=== PATIENT | female | born 1950 | race Caucasian/White ===

== ENCOUNTER 2017-02-27 17:20 | Emergency (ER) | payer OTHER ==
[~2017-02-27] VITALS: Ht 172.7 cm; Wt 96.7 kg
[2017-02-27 18:51] LABS: BASOPHIL COUNT 0.1 K/uL (0-0.1); EOSINOPHIL (%) 2.7 % (0-5); EOSINOPHIL COUNT 0.3 K/uL (0-0.3); HEMATOCRIT 37.4 % (36.0-46.0); IMMATURE GRANULOCYTE (%) 0.4 % (0.0-0.7); INSTRUMENT ABS NEUTROPHIL CT 6.9 K/uL; LYMPHOCYTE COUNT 2.2 K/uL (1.0-2.8); MCHC 31.6 G/DL (30.0-36.0); MCV 85.6 FL (83-99); MONOCYTE (%) 6.5 % (3-12); MONOCYTE COUNT 0.7 K/uL (0-0.8); NEUTROPHIL (%) 67.9 % (45-76); NEUTROPHIL COUNT 6.9 K/uL (1.8-6.4); PLATELET COUNT 289 K/uL (156-360); RBC DIS.WIDTH-CV 15.1 % (11.8-14.6); RBC DIS.WIDTH-SD 47.6 % (39-53); RED BLOOD COUNT 4.37 M/uL (3.80-5.20); WHITE BLOOD COUNT 10.1 K/uL (4.1-10.2)
[2017-02-27 19:03] LABS: CHLORIDE 106 mEq/L (99-109); SODIUM 139 mEq/L (136-147)
[2017-02-27 19:05] LABS: GLUCOSE 214 mg/dL (70-99)
[2017-02-27 19:07] LABS: ANION GAP 9 MEQ/L (2-14); TOTAL BILIRUBIN 0.2 mg/dL (0.0-1.0)
[2017-02-27 19:09] LABS: ALKALINE PHOSPHATASE 65 IU/L (3-129); GFR ESTIMATE (CALCULATED) 59 mL/min/
[2017-02-27 19:10] LABS: UREA NITROGEN (BUN) 17 mg/dL (9-23)
[2017-02-27 19:12] LABS: LIPASE 26 U/L (1.0-51.0)
[2017-02-27 19:42] LABS: ADD MIUA? YES; BILIRUBIN NEGATIVE; BLOOD SMALL; COLOR YELLOW ((YELLOW)); GLUCOSE (STRIP) NEGATIVE; KETONES NEGATIVE; LEUKOCYTES LARGE; NITRITE NEGATIVE; PROTEIN (STRIP) NEGATIVE; SPECIFIC GRAVITY 1.016 (1.000-1.030); UROBILINOGEN 0.2 MG/DL (0.2-1.0)
[2017-02-27 19:49] LABS: BACTERIA 3+ /HPF; EPITHELIAL CELLS 1+ /HPF; MUCUS TRACE /LPF; RED BLOOD CELLS 0-5 /HPF (0-5); UCUL ADDED? YES; UNCLASSIFIED CASTS 0-5 /LPF; UNCLASSIFIED CRYSTALS 1+ /HPF; WHITE BLOOD CELLS TNTC /HPF (0-5)
[2017-02-27] MEDS ORDERED: ZOFRAN ODT4 MG PO (21:04)
[2017-02-27] MEDS ORDERED: BACTRIM,SEPT1 TABLET PO (21:04)
[2017-02-27 23:06] VITALS: BP 120/58
== END 2017-02-27 23:10 | disposition home or self-care (01) ==
LOC: EME 17:20
PROVIDERS: Emergency Medicine
DX: N39.0 Urinary tract infection, site not specified (principal); R10.84 Generalized abdominal pain; R19.7 Diarrhea, unspecified; N28.1 Cyst of kidney, acquired; Z90.710 Acquired absence of both cervix and uterus
CPT/HCPCS: 74177; 80053; 81003; 83690; 85025; 87086 GA; 99281; 99285; J0692; J2405; J7030

== ENCOUNTER 2017-05-26 19:48 | Observation (INO) | payer OTHER ==
[~2017-05-26] VITALS: Ht 172.7 cm; Wt 94.7 kg
[~2017-05-26 19:48] MED LIST: BACTRIM,SEPT1 TABLET PO; ZOFRAN ODT4 MG PO
[2017-05-26 20:31] LABS: HEMATOCRIT 34.9 % (36.0-46.0); HEMOGLOBIN 11.4 G/DL (11.9-15.5); MCH 28.6 PG (29.0-34.0); MCHC 32.7 G/DL (30.0-36.0); MCV 87.7 FL (83-99); PLATELET COUNT 259 K/uL (156-360); RBC DIS.WIDTH-CV 12.6 % (11.8-14.6); RBC DIS.WIDTH-SD 40.2 % (39-53); RED BLOOD COUNT 3.98 M/uL (3.80-5.20)
[2017-05-26 20:40] LABS: CHLORIDE 105 mEq/L (99-109); POTASSIUM 3.5 mEq/L (3.7-5.4); SODIUM 141 mEq/L (136-147)
[2017-05-26 20:42] LABS: GLUCOSE 219 mg/dL (70-99)
[2017-05-26 20:45] LABS: CREATININE 1.2 mg/dL (0.6-1.3); GFR ESTIMATE (CALCULATED) 47 mL/min/
[2017-05-26 20:46] LABS: UREA NITROGEN (BUN) 20 mg/dL (9-23)
[2017-05-26 20:52] LABS: TROP-I INTERPRETATION NEGATIVE; TROPONIN-I < 0.01 ng/mL (0.0-0.30)
[2017-05-26] MEDS ORDERED: LYRICA75 MG PO (22:20)
[2017-05-26] MEDS ORDERED: FENOFIBRATE145 M1 PO (22:21)
[2017-05-26] MEDS ORDERED: ESCITALOPRAM OX20 MG PO (22:22)
[2017-05-26] MEDS ORDERED: PRAVASTATIN SOD80 MG PO (22:23)
[2017-05-26] MEDS ORDERED: METFORMIN HCL500 MG PO (22:23)
[2017-05-26] MEDS ORDERED: ZOFRAN ODT4 MG PO (22:24)
[2017-05-26 23:55] LABS: D-DIMER ELISA < 150.00 ng/mLDDU (<230)
[2017-05-27 00:01] LABS: ALBUMIN 3.9 g/dL (3.2-4.8)
[2017-05-27 00:04] LABS: TOTAL PROTEIN 6.3 g/dL (6.4-8.3)
[2017-05-27 00:06] LABS: TOTAL BILIRUBIN 0.2 mg/dL (0.0-1.0)
[2017-05-27 00:07] LABS: ALKALINE PHOSPHATASE 65 IU/L (3-129)
[2017-05-27 00:09] LABS: AST (GOT) 13 IU/L (2-34)
[2017-05-27 00:10] LABS: ALT (GPT) 13 IU/L (3-49); DIRECT BILIRUBIN 0.1 mg/dL (0.0-0.3)
[2017-05-27 00:11] LABS: LIPASE 28 U/L (1.0-51.0)
[2017-05-27 00:20] VITALS: BP 133/71
[2017-05-27 03:17] LABS: TROP-I INTERPRETATION NEGATIVE; TROPONIN-I < 0.01 ng/mL (0.0-0.30)
[2017-05-27 04:10] VITALS: BP 137/69
[2017-05-27 07:53] VITALS: BP 125/64
[2017-05-27 07:53] LABS: HEMATOCRIT 38.5 % (36.0-46.0); HEMOGLOBIN 12.3 G/DL (11.9-15.5); MCH 27.8 PG (29.0-34.0); MCHC 31.9 G/DL (30.0-36.0); MCV 87.1 FL (83-99); PLATELET COUNT 268 K/uL (156-360); RBC DIS.WIDTH-CV 12.2 % (11.8-14.6); RBC DIS.WIDTH-SD 39.3 % (39-53); RED BLOOD COUNT 4.42 M/uL (3.80-5.20)
[2017-05-27 08:14] LABS: TROP-I INTERPRETATION NEGATIVE; TROPONIN-I < 0.01 ng/mL (0.0-0.30)
[2017-05-27 08:31] LABS: CHLORIDE 105 MEQ/L (99-109); GFR ESTIMATE (CALCULATED) 59 mL/min/; GLUCOSE 198 mg/dL (70-99); POTASSIUM 4.2 MEQ/L (3.7-5.4); SODIUM 143 MEQ/L (136-147); UREA NITROGEN (BUN) 15 mg/dL (9-23)
[2017-05-27 11:23] VITALS: BP 115/58
[2017-05-27] MEDS ORDERED: ASPIR-LOW81 MG PO (13:51)
== END 2017-05-27 15:00 | disposition home or self-care (01) ==
LOC: EME 19:48 → EDOF 23:22 → 5WEST 23:22 → ENRESERV 23:29 → 5WEST 05-27 00:19
PROVIDERS: Emergency Medicine; Hospitalist
DX: R07.89 Other chest pain (principal); I10 Essential (primary) hypertension; E11.9 Type 2 diabetes mellitus without complications; E78.5 Hyperlipidemia, unspecified; R94.31 Abnormal electrocardiogram [ECG] [EKG]; I69.354 Hemiplegia and hemiparesis following cerebral infarction affecting left non-dominant side; F31.9 Bipolar disorder, unspecified; R06.02 Shortness of breath; Z82.3 Family history of stroke; E66.9 Obesity, unspecified; Z68.31 Body mass index [BMI] 31.0-31.9, adult; E87.6 Hypokalemia; D64.9 Anemia, unspecified; Z87.891 Personal history of nicotine dependence; Z79.84 Long term (current) use of oral hypoglycemic drugs; Z88.0 Allergy status to penicillin; Z88.1 Allergy status to other antibiotic agents; Z88.5 Allergy status to narcotic agent
CPT/HCPCS: 71046; 80048; 80076; 81003; 82948; 83690; 84484; 85027; 85379; 93005; 99281; 99285; G0378; J1815; J2270; J2405; J3010

== ENCOUNTER 2017-08-10 19:33 | Observation (INO) | payer OTHER ==
[~2017-08-10] VITALS: Ht 172.7 cm; Wt 95.2 kg
[~2017-08-10 19:33] MED LIST changes: +ASPIR-LOW81 MG PO; +ESCITALOPRAM OX20 MG PO; +FENOFIBRATE145 M1 PO; +LYRICA75 MG PO; +METFORMIN HCL500 MG PO; +PRAVASTATIN SOD80 MG PO
[2017-08-10 20:27] LABS: HEMATOCRIT 34.7 % (36.0-46.0); HEMOGLOBIN 11.5 G/DL (11.9-15.5); MCH 28.6 PG (29.0-34.0); MCHC 33.1 G/DL (30.0-36.0); MCV 86.3 FL (83-99); PLATELET COUNT 253 K/uL (156-360); RBC DIS.WIDTH-CV 12.9 % (11.8-14.6); RBC DIS.WIDTH-SD 40.7 % (39-53); RED BLOOD COUNT 4.02 M/uL (3.80-5.20); WHITE BLOOD COUNT 8.3 K/uL (4.1-10.2)
[2017-08-10 20:38] LABS: ALBUMIN 3.8 g/dL (3.2-4.8); CHLORIDE 102 mEq/L (99-109); POTASSIUM 3.7 mEq/L (3.7-5.4)
[2017-08-10 20:39] LABS: SODIUM 139 mEq/L (136-147)
[2017-08-10 20:41] LABS: GLUCOSE 173 mg/dL (70-99); TOTAL PROTEIN 6.2 g/dL (6.4-8.3)
[2017-08-10 20:43] LABS: TOTAL BILIRUBIN 0.2 mg/dL (0.0-1.0)
[2017-08-10 20:44] LABS: ALKALINE PHOSPHATASE 74 IU/L (3-129); CREATININE 1.1 mg/dL (0.6-1.3); GFR ESTIMATE (CALCULATED) 52 mL/min/
[2017-08-10 20:46] LABS: AST (GOT) 16 IU/L (2-34); UREA NITROGEN (BUN) 16 mg/dL (9-23)
[2017-08-10 20:47] LABS: ALT (GPT) 18 IU/L (3-49)
[2017-08-10 20:48] LABS: TROP-I INTERPRETATION NEGATIVE; TROPONIN-I 0.01 ng/mL (0.0-0.30)
[2017-08-10] MEDS ORDERED: FISH OIL 1,0001 EAC7 PO (21:30)
[2017-08-10] MEDS ORDERED: LO-DOSE ASPIRIN81 M2 PO (21:31)
[2017-08-10] MEDS ORDERED: ZESTRIL2.5 MG PO (21:31)
[2017-08-10] MEDS ORDERED: CLOPIDOGREL75 MG PO (21:33)
[2017-08-10] MEDS ORDERED: BUPROPION XL300 MG PO (21:34)
[2017-08-10] MEDS ORDERED: NAMENDA XR28 MG PO (21:35)
[2017-08-10] MEDS ORDERED: FLONASE16 G1 BOTH NARES (21:39)
[2017-08-10] MEDS ORDERED: SYNTHROID125 MCG PO (21:40)
[2017-08-10] MEDS ORDERED: NYSTATIN15 GM TP (21:42)
[2017-08-10] MEDS ORDERED: TYLENOL EXTRA500 MG PO (21:42)
[2017-08-10] MEDS ORDERED: NITROSTAT0.4 MG SL (21:43)
[2017-08-11 00:31] VITALS: BP 139/68
[2017-08-11 02:46] LABS: TROP-I INTERPRETATION NEGATIVE; TROPONIN-I < 0.01 ng/mL (0.0-0.30)
[2017-08-11 04:51] VITALS: BP 119/61
[2017-08-11 08:00] VITALS: BP 144/65
[2017-08-11 09:55] LABS: TROP-I INTERPRETATION NEGATIVE; TROPONIN-I < 0.01 ng/mL (0.0-0.30)
[2017-08-11 13:03] VITALS: BP 120/67
[2017-08-11 16:55] VITALS: BP 107/56
== END 2017-08-11 16:20 | disposition home or self-care (01) ==
LOC: EME → EDBD 19:33 → EME 19:33 → EDOF 21:22 → 4SOUTH 21:22 → EDOF 21:22 → ENRESERV 21:24 → 4SOUTH 08-11
PROVIDERS: Hospitalist; Nurse Practitioner Family; Physician Assistant
DX: R07.9 Chest pain, unspecified (principal); I25.10 Atherosclerotic heart disease of native coronary artery without angina pectoris; I10 Essential (primary) hypertension; E78.5 Hyperlipidemia, unspecified; E11.9 Type 2 diabetes mellitus without complications; Z86.73 Personal history of transient ischemic attack (TIA), and cerebral infarction without residual deficits; F31.9 Bipolar disorder, unspecified; Z87.891 Personal history of nicotine dependence; E03.9 Hypothyroidism, unspecified; Z79.84 Long term (current) use of oral hypoglycemic drugs; Z79.82 Long term (current) use of aspirin; Z88.0 Allergy status to penicillin; Z88.1 Allergy status to other antibiotic agents; Z88.5 Allergy status to narcotic agent; Z88.8 Allergy status to other drugs, medicaments and biological substances; Z83.3 Family history of diabetes mellitus; Z82.3 Family history of stroke
CPT/HCPCS: 71046; 80053; 82948; 84484; 85027; 93005; 99281; 99285; G0378; J1644

== ENCOUNTER 2017-10-15 06:57 | Emergency (ER) | payer OTHER ==
[~2017-10-15] VITALS: Ht 170.2 cm; Wt 95.0 kg
[~2017-10-15 06:57] MED LIST changes: +BUPROPION XL300 MG PO; +CLOPIDOGREL75 MG PO; +FISH OIL 1,0001 EAC7 PO; +FLONASE16 G1 BOTH NARES; +LO-DOSE ASPIRIN81 M2 PO; +NAMENDA XR28 MG PO; +NITROSTAT0.4 MG SL; +NYSTATIN15 GM TP; +SYNTHROID125 MCG PO; +TYLENOL EXTRA500 MG PO; +ZESTRIL2.5 MG PO
[2017-10-15] MEDS ORDERED: NAMENDA XR28 MG PO (08:09)
[2017-10-15] MEDS ORDERED: LASIX20 MG PO (08:09)
[2017-10-15 08:16] LABS: HEMATOCRIT 35.9 % (36.0-46.0); HEMOGLOBIN 11.9 G/DL (11.9-15.5); MCH 28.4 PG (29.0-34.0); MCHC 33.1 G/DL (30.0-36.0); MCV 85.7 FL (83-99); PLATELET COUNT 241 K/uL (156-360); RBC DIS.WIDTH-CV 12.7 % (11.8-14.6); RBC DIS.WIDTH-SD 39.6 % (39-53); RED BLOOD COUNT 4.19 M/uL (3.80-5.20); WHITE BLOOD COUNT 5.5 K/uL (4.1-10.2)
[2017-10-15 08:25] LABS: CHLORIDE 110 mEq/L (99-109); SODIUM 145 mEq/L (136-147)
[2017-10-15 08:27] LABS: GLUCOSE 136 mg/dL (70-99)
[2017-10-15 08:28] LABS: BILIRUBIN NEGATIVE; BLOOD NEGATIVE; COLOR YELLOW ((YELLOW)); GLUCOSE (STRIP) NEGATIVE; KETONES NEGATIVE; LEUKOCYTES MODERATE; NITRITE POSITIVE; PROTEIN (STRIP) NEGATIVE; SPECIFIC GRAVITY 1.009 (1.000-1.030); UROBILINOGEN 0.2 MG/DL (0.2-1.0)
[2017-10-15 08:29] LABS: APPEARANCE SL.HAZY ((CLEAR))
[2017-10-15 08:31] LABS: BACTERIA 1+ /HPF; EPITHELIAL CELLS RARE /HPF; MUCUS TRACE /LPF; RED BLOOD CELLS 0-5 /HPF (0-5); UCUL ADDED? YES; WHITE BLOOD CELLS 20-30 /HPF (0-5)
[2017-10-15 08:31] LABS: CREATININE 1.1 mg/dL (0.6-1.3); GFR ESTIMATE (CALCULATED) 52 mL/min/
[2017-10-15 08:32] LABS: UREA NITROGEN (BUN) 15 mg/dL (9-23)
[2017-10-15] MEDS ORDERED: MACROBID100 MG PO (11:59)
[2017-10-15 12:41] VITALS: BP 119/73
== END 2017-10-15 12:45 | disposition home or self-care (01) ==
LOC: EME 06:57
PROVIDERS: Emergency Medicine
DX: N39.0 Urinary tract infection, site not specified (principal); M25.551 Pain in right hip; M25.552 Pain in left hip; W19.XXXA Unspecified fall, initial encounter; Y93.01 Activity, walking, marching and hiking; Y92.199 Unspecified place in other specified residential institution as the place of occurrence of the external cause; I10 Essential (primary) hypertension; E11.9 Type 2 diabetes mellitus without complications; K21.9 Gastro-esophageal reflux disease without esophagitis; F31.9 Bipolar disorder, unspecified; Z87.891 Personal history of nicotine dependence; Z86.73 Personal history of transient ischemic attack (TIA), and cerebral infarction without residual deficits; Z90.49 Acquired absence of other specified parts of digestive tract; Z79.84 Long term (current) use of oral hypoglycemic drugs; Z79.82 Long term (current) use of aspirin; Z88.0 Allergy status to penicillin; Z88.1 Allergy status to other antibiotic agents; Z88.5 Allergy status to narcotic agent; Z88.8 Allergy status to other drugs, medicaments and biological substances
CPT/HCPCS: 72170; 74176; 80048; 81003; 85027; 87077; 87086; 87186; 99281; 99285; G8978 GP CI; G8979 GP CH; G8987 GO CI; G8988 GO CH; J0696; J2270; J2405; J7030